=== PATIENT | male | born 1990 | race Caucasian/White ===

== ENCOUNTER 2017-12-03 05:56 | Day surgery (SDC) | payer OTHER ==
[2017-12-03 06:17] VITALS: BMI 25.7
[2017-12-03] MEDS ORDERED: DEXAMETHASONE SOD PHOSPHATE/PF 10 MG/ML SDV ONE (06:50)
[2017-12-03] MEDS ORDERED: MIDAZOLAM HCL 2 MG/2 ML SINGLE DOSE VIAL ONE ×2 (06:50→07:14)
[2017-12-03] MEDS ORDERED: ROPIVACAINE HCL 0.5% 30ML VIAL ONE (06:51)
[2017-12-03] MEDS ORDERED: SUCCINYLCHOLINE CHLORIDE 200 MG/10 ML VIAL ONE (07:13)
[2017-12-03] MEDS ORDERED: ceFAZolin SODIUM 1 GM VIAL ONE ×2 (07:13→07:53)
[2017-12-03] MEDS ORDERED: PROPOFOL 20 ML ONE ×2 (07:13→07:14)
[2017-12-03] MEDS ORDERED: DEXAMETHASONE SOD PHOSPHATE 4 MG/1 ML VIAL ONE (07:14)
[2017-12-03] MEDS ORDERED: KETOROLAC TROMETHAMINE 30 MG/1 ML VIAL ONE (07:14)
[2017-12-03] MEDS ORDERED: LIDOCAINE HCL/PF 2% SDV 5ML VIAL ONE (07:14)
[2017-12-03] MEDS ORDERED: ONDANSETRON 4 MG/2 ML VIAL ONE (07:14)
[2017-12-03] MEDS ORDERED: SODIUM CHLORIDE 0.9% P/F 10 ML VIAL IJ ONE (07:14)
[2017-12-03] MEDS ORDERED: VANCOMYCIN 1,000 MG VIAL (RESTRICTED TO ID ONLY) ONE (07:16)
[2017-12-03] MEDS ORDERED: TRANEXAMIC ACID 1000 MG/10 ML VIAL ONE (07:49)
--- NOTE | 2017-12-03 07:50 | HP ---
History & Physical Update - History History: No Change - Physical Physical: No Change - Assessment Assessment: No Change - Plan Plan: No Change
--- NOTE | 2017-12-03 09:49 | OP ---
Operative Note - Note: Operative Date: 12/03/17 Pre-Operative Diagnosis: right knee ACL tear, LMT Operation: RKA, ACLR< LMR Surgeon: Christian Aguayo Anesthesia: General Operative Report Dictated: Yes
--- NOTE | 2017-12-03 09:50 | DS ---
Physical Examination Vital Signs: Vital Signs Temperature 98.0 F 12/03/17 06:16 Pulse Rate 50 L 12/03/17 06:16 Respiratory Rate 18 12/03/17 06:16 Blood Pressure 112/68 12/03/17 06:16 O2 Sat by Pulse Oximetry (%) 96 12/03/17 06:16 Discharge Summary Reason For Visit: ANTERIOR CRUCIATE LIGAMENT TEAR, RIGHT KNEE Condition: Good - Instructions Diet, Activity, Other Instructions: Post Operative Instructions: ACL Reconstruction Dr. Christian Aguayo 1. Pain following an ACL reconstruction is variable and can be significant. Some patients will have more pain than others. You have been provided with a prescription for medication that contains a narcotic. You are not allowed to drive while on this medication.Feel free to take medications such as Ibuprofen or Naprosyn in addition to the pain medicine if you do not have any problems with the NSAID class of medications. 2. You should not remove the bandages for 48 hours unless directed otherwise. You may shower at that point. You are not allowed to bathe or go swimming until the sutures are removed. Put band-aids on the sutures after your shower and do not put any creams or lotions over the incisions. 3. You are allowed to put all your weight on the leg and bend your knee. 4. Getting the knee straight is your most important goal during the first 72 hours following an ACL reconstruction. Try not to lie down with a pillow under your knee. Instead the pillow should be under your ankle, thus allowing you to push your knee straight down into the bed. This is a very important milestone to achieve before your first post-surgery visit with me. 5. Swelling around the knee is normal following an ACL reconstruction. 6. The area around the knee and along the front of your jackson will also become swollen and black and blue. 7. Apply ice to the knee for 15 min every hour or so. You may continue this for as many days as you like. 8. Please call the office to schedule a visit to have your sutures removed. 9. If for any reason you believe you may have an infection or are concerned, please feel free to call me. I can be reached through our office number 24 hours a day. 10. Please call our office with any questions; we will review the surgical findings during your post operative visit. Disposition: HOME - Home Medications Comprehensive Discharge Medication List: Ambulatory Orders NK [No Known Home Medication] 11/29/17
--- NOTE | 2017-12-03 09:52 | SURG ---
Surgery Floor Inspector Note Floor Inspector: Sara Alejandra PA-C Date of Service: 12/03/17 Diagnosis: right knee ACL tear, LMT Procedure: right ACL reconstruction with allograft, partial Lateral meniscus debridement I was present for the entirety of the operative procedure. For further detail, please refer to operative report. Visit type - Case Type Case Type: Scheduled Admission - Emergency Emergency Visit: No - New patient This patient is new to me today: Yes Date on this admission: 12/03/17
[2017-12-03] MEDS ORDERED: oxyCODONE HCL 5 MG TABLET PO PRN ×2 (10:27)
[2017-12-03] MEDS ORDERED: ONDANSETRON 4 MG/2 ML VIAL IVPUSH PRN (10:27)
[2017-12-03] MEDS ORDERED: LACTATED RINGERS SOLUTION 1,000 ML IV SCH (10:30)
[2017-12-03 12:07] VITALS: BP 112/65; PULSE 52; TEMP 98.3
--- NOTE | 2017-12-08 14:51 | PATH ---
Surgical Pathology Report Patient Name: ARISTIDES PRICE Med. Rec. #: [id number] /Age/Gender: 1990 (Age: 27) / M Account: [id number] Location: [facility] Taken: 12/03/2017 Received: 12/03/2017 Reported: 12/08/2017 Physicians: Christian Aguayo M.D. Specimen(s) Received RIGHT KNEE SHAVINGS Clinical History Anterior cruciate ligament tear right knee Final Diagnosis KNEE, RIGHT, ARTHROSCOPIC SHAVINGS: FRAGMENTS OF CARTILAGE, BONE AND FIBROCOLLAGENOUS TISSUE. Electronically Signed Sara Lamar M.D. Gross Description Received in formalin labeled "right knee shavings," is a 2.0 x 1.2 x 0.2 cm aggregate of rocha-yellow soft tissue fragments. The formalin is filtered and the specimen is entirely submitted in one cassette. /12/06/201712/06/2017
== END 2017-12-03 11:55 | disposition home or self-care (01) ==
LOC: FASU 05:56
PROVIDERS: ATTEND Orthopaedic Surgery
PROC: 0SQC4ZZ Repair Right Knee Joint, Percutaneous Endoscopic Approach (ICD-10-PCS; 2017-12-03)
PROC: 0MQN4ZZ Repair Right Knee Bursa and Ligament, Percutaneous Endoscopic Approach (ICD-10-PCS; principal; 2017-12-03 08:16)
DX: S83.511A Sprain of anterior cruciate ligament of right knee, initial encounter (principal); S83.281A Other tear of lateral meniscus, current injury, right knee, initial encounter; X58.XXXA Exposure to other specified factors, initial encounter; Y93.9 Activity, unspecified; Y92.9 Unspecified place or not applicable
CPT/HCPCS: 88304-TC